=== PATIENT | female | born 2000 | race Caucasian/White ===

== ENCOUNTER 2023-08-02 12:49 | Emergency (ER) | payer OTHER ==
[~2023-08-02] VITALS: Ht 170.2 cm; Wt 100.0 kg
[2023-08-02 13:20] VITALS: BP 124/72
[2023-08-02 13:30] VITALS: BP 119/72
[2023-08-02 13:34] LABS: URINE BILIRUBIN - DIPSTICK Negative (NEGATIVE); URINE BLOOD DIPSTICK Trace-intact (NEGATIVE); URINE COLOR Yellow; URINE GLUCOSE - DIPSTICK Negative (NEGATIVE); URINE KETONE Negative (NEGATIVE); URINE LEUK ESTERASE Moderate (NEGATIVE); URINE NITRITE - DIPSTICK Negative (Negative); URINE PH 5.5 (4.5-8.0); URINE PROTEIN - DIPSTICK Negative (NEG-TRACE); URINE SPECIFIC GRAVITY <=1.005; URINE UROBILINOGEN - DIPSTICK 0.2 E.U./dL (0.2)
[2023-08-02 13:40] LABS: URINE WBC 20-50 WBC/hpf (0-5)
[2023-08-02 13:41] LABS: URINE BACTERIA FEW hpf; URINE RBC 0-2 RBC/hpf (0-5)
[2023-08-02 13:42] LABS: URINE SQUAMOUS EPITHELIAL CELL FEW EPI/hpf (0-FEW)
[2023-08-02 14:00] VITALS: BP 106/70
[2023-08-02] MEDS ORDERED: CEPHALEXIN MONOHYDRATE 500 MG/CAP PO ONE (14:10)
[2023-08-02] MEDS ORDERED: KEFLEX500 MG PO (14:29)
[2023-08-02 14:39] VITALS: BP 106/70
== END 2023-08-02 14:43 | disposition home or self-care (01) | DRG 690 ==
LOC: ED 12:49
PROVIDERS: Nurse Practitioner
DX: N39.0 Urinary tract infection, site not specified (principal)